=== PATIENT | male | born 1995 | race Caucasian/White ===

== ENCOUNTER 2016-10-14 00:15 | Emergency (ER) | payer BC ==
[~2016-10-14] VITALS: Ht 177.8 cm; Wt 90.7 kg
[2016-10-14 00:20] VITALS: BP_SYST 124
[2016-10-14] MEDS ORDERED: NACL 0.9% 1,000 ML IV ONE (00:50)
[2016-10-14] MEDS ORDERED: FAMOTIDINE PF 20 MG/2 ML VIAL IVP ONE (01:00)
[2016-10-14] MEDS ORDERED: DIPHENHYDRAMINE INJ 50 MG/ML VIAL IVP ONE (01:00)
[2016-10-14] MEDS ORDERED: methylPREDNISolone SOD SUCC/PF 62.5 MG/ML VIAL IVP ONE (01:00)
[2016-10-14 01:48] VITALS: BP_SYST 117
== END 2016-10-14 01:48 | disposition home or self-care (01) ==
LOC: SED 00:15
DX: T78.1XXA Other adverse food reactions, not elsewhere classified, initial encounter (principal); R06.02 Shortness of breath; Z91.030 Bee allergy status; Z91.012 Allergy to eggs; Z91.02 Food additives allergy status; Z91.018 Allergy to other foods; X58.XXXA Exposure to other specified factors, initial encounter
CPT/HCPCS: 96361; 96374; 96375; 99284; J1200; J2930; J3490; J7030